=== PATIENT | female | born 1970 | race American Indian/Alaskan Native ===

== ENCOUNTER 2019-10-04 17:22 | Emergency (ER) | payer OTHER ==
[2019-10-04] MEDS ORDERED: IBUPROFEN 800 MG TAB PO ONE (20:15)
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
[2019-10-04 22:06] VITALS: BP 132/58
== END 2019-10-04 22:07 | disposition home or self-care (01) ==
LOC: ED 17:22
DX: S13.4XXA Sprain of ligaments of cervical spine, initial encounter (principal); Z79.899 Other long term (current) drug therapy; Z98.890 Other specified postprocedural states; V49.49XA Driver injured in collision with other motor vehicles in traffic accident, initial encounter; Y92.410 Unspecified street and highway as the place of occurrence of the external cause; Y93.89 Activity, other specified; Y99.8 Other external cause status
CPT/HCPCS: 72040